=== PATIENT | male | born 1965 | race Caucasian/White ===

== ENCOUNTER 2017-03-10 13:55 | Emergency (ER) | payer BC, OTHER ==
[2017-03-10 14:09] VITALS: RESP 16
--- NOTE | 2017-03-10 16:05 | EDPHY ---
H & P Stated Complaint: Left Upper quad - Personal History Current Tetanus/Diphtheria Vaccine: Yes Current Tetanus Diphtheria and Acellular Pertussis (TDAP): Yes - Medical/Surgical History Hx Asthma: No Hx Chronic Respiratory Disease: No Hx Diabetes: No Hx Cardiac Disease: No Hx Renal Disease: No Hx Cirrhosis: No Hx Alcoholism: No Hx HIV/AIDS: No Hx Splenectomy or Spleen Trauma: No Other PMH: pmh: kidney stones, c7 pinched nerve - Social History Smoking Status: Never smoked Time Seen by Provider: 03/10/17 15:39 HPI/ROS: Chief complaint: Abdominal pain History of present illness: This is a 52-year-old male presents to the emergency department for left-sided abdominal pain. Patient reports the onset of symptoms earlier today. Describes a sharp pain that is intermittent in nature. He has had associated discomfort with urination and change in color of his urine. He has had a previous kidney stone on the left that feels similar to this. It did not require intervention, passed on its own. He denies associated signs or symptoms including no fevers, no nausea, vomiting or diarrhea. Review of systems: A 10 point review of systems was obtained and other than described above was negative (Lm Mark) - Physical Exam Exam: General Appearance: Alert, nontoxic. Eyes: Pupils equal and round no pallor or injection. ENT, Mouth: Mucous membranes moist. Respiratory: There are no retractions, lungs are clear to auscultation. Cardiovascular: Regular rate and rhythm. Gastrointestinal: Abdomen is soft and nontender, no masses, bowel sounds normal. Genitourinary: No CVA tenderness. Neurological: Alert and oriented x4. Strength and sensation intact and symmetrical. Skin: Warm and dry, no rashes. Musculoskeletal: Neck is supple nontender. Extremities are symmetrical, full range of motion. Psychiatric: Patient is oriented X 3, there is no agitation. (Lm Mark) Constitutional: Initial Vital Signs Temperature (C) 36.4 C 03/10/17 14:00 Heart Rate 113 H 03/10/17 14:00 Respiratory Rate 16 03/10/17 14:00 Blood Pressure 153/100 H 03/10/17 14:00 O2 Sat (%) 98 03/10/17 14:00 O2 Delivery Mode Room Air Allergies/Adverse Reactions: No Known Allergies Allergy (Unverified 03/10/17 14:00) Home Medications: Medication Instructions Recorded Hydrocodone/APAP 5/325 [R[facility]ide 1 tab PO Q6H #10 tab 03/10/17 5/325 (*)] Tamsulosin HCl [Flomax 0.4 MG (*)] 0.4 mg PO DAILY #5 cap 03/10/17 Medical Decision Making ED Course/Re-evaluation: I was asked to take radiology report about this patient. The patient had CT imaging of the abdomen pelvis without contrast evaluate for possible kidney stone. CT imaging of the abdomen pelvis without contrast reveals small hydronephrosis on the left side with a 3 mm stone in the bladder. There is also a smaller 2 mm stone in the right kidney pelvis. (Soledad Ibarra) Patient seen under the supervision of my secondary supervising physician Dr. Tuan Gonzalez. Patient presents to the emergency department for left flank pain. Patient appears to have a kidney stone that has passed. No evidence of infection or other pathology at this time. Pain is controlled. He is discharged home. Home care is discussed. He is referred to Urology for recheck. Return precautions are given. Patient voiced understanding and agreement with plan. (Lm Mark) Differential Diagnosis: Included but not limited to cystitis, pyelonephritis, nephrolithiasis (Lm Mark) - Data Points Laboratory Results: Laboratory Results 03/10/17 15:52 03/10/17 15:52 Microbiology Results: MICROBIOLOGY 03/10/17 15:45 Urine,Clean Catch Urine Culture - Final Departure - Departure Disposition: Home, Routine, Self-Care Clinical Impression: Kidney stone on left side Condition: Good Instructions: Kidney Stones (ED) Additional Instructions: Follow-up with Urology for continued evaluation and care In regards to pain control see the following: Use ibuprofen [600] mg [3] times a day for the next 2-3 days for pain In addition You have been prescribed [Riverside] for pain. [Riverside] contains Tylenol, do not take extra Tylenol/acetaminophen/Apap with it. It is sedating. If symptoms worsen or new symptoms develop return to the emergency room for recheck Referrals: Francesco Ellison MD [Medical Doctor] - As per Instructions Prescriptions: Hydrocodone/APAP 5/325 [R[facility]ide 5/325 (*)] 1 tab PO Q6H #10 tab Tamsulosin HCl [Flomax 0.4 MG (*)] 0.4 mg PO DAILY #5 cap
[2017-03-10 16:07] LABS: % IMMATURE GRANULYOCYTES 0.5 % (0.0-1.1); ABSOLUTE IMMATURE GRANULOCYTES 0.05 10^3/uL (0.00-0.10); ADD DIFF? NO; ADD MORPH? NO; ADD SCAN? NO; ATYPICAL LYMPHOCYTE FLAG 70 (0-99); FRAGMENT RBC FLAG 0 (0-99); HEMATOCRIT 50.3 % (40.0-51.0); HEMOGLOBIN 17.4 g/dL (13.7-17.5); LEFT SHIFT FLG 0 (0-99); LIPEMIA HEMOLYSIS FLAG 90 (0-99); MEAN CELL HEMOGLOBIN 29.4 pg (27.9-34.1); MEAN CELL HEMOGLOBIN CONCENTR. 34.6 g/dL (32.4-36.7); MEAN CELL VOLUME 85.1 fL (81.5-99.8); MEAN PLATELET VOLUME 10.7 fL (8.7-11.7); PLATELET CLUMPS FLAG 0 (0-99); PLATELET COUNT 190 10^3/uL (150-400); RED BLOOD CELL COUNT 5.91 10^6/uL (4.40-6.38)
[2017-03-10 16:09] LABS: COLOR AMBER; LEUKOCYTE ESTERASE,URINE NEGATIVE (NEGATIVE); NITRITE,URINE NEGATIVE (NEGATIVE)
[2017-03-10 16:12] LABS: BACTERIA 2+ /hpf (NONE SEEN); MUCUS 4+ /lpf (NONE-1+); RBC,URINE 50-182 /hpf (0-3)
[2017-03-10 16:18] LABS: ANION GAP 12 mEq/L (8-16); CALCIUM 9.5 mg/dL (8.5-10.4); CARBON DIOXIDE 23 mEq/l (22-31); CHLORIDE 110 mEq/L (97-110); CREATININE 0.9 mg/dL (0.7-1.3); GLOMERULAR FILTRATION RATE > 60; GLUCOSE 83 mg/dL (70-100); POTASSIUM 3.7 mEq/L (3.5-5.2); SODIUM 145 mEq/L (134-144)
[2017-03-10 17:22] VITALS: BP 145/107; PULSE 105; TEMP 97.9; O2SAT 95
== END 2017-03-10 17:23 | disposition home or self-care (01) ==
DX: N20.0 Calculus of kidney (principal)